=== PATIENT | male | born 1965 | race Two or more races ===

== ENCOUNTER 2022-04-16 06:26 | Emergency (ER) | payer MEDICAID ==
[~2022-04-16] VITALS: Ht 170.2 cm; Wt 88.5 kg
[2022-04-16] MEDS ORDERED: MORPHINE SULFATE 4 MG/ML SYR/VIAL IV ONE (06:45)
[2022-04-16] MEDS ORDERED: ONDANSETRON HCL 4 MG/2 ML VIAL IV ONE (06:45)
[2022-04-16] MEDS ORDERED: LIDOCAINE 1% (LOCAL ANESTH.) PF 5ml SDV ID ONE (08:45)
[2022-04-16] MEDS ORDERED: IBUP800T27 PO (09:25)
[2022-04-16 09:35] VITALS: BP 145/77
== END 2022-04-16 10:13 | disposition home or self-care (01) ==
LOC: EDBD 06:26 → ER 06:26
DX: S89.81XA Other specified injuries of right lower leg, initial encounter (principal); M25.461 Effusion, right knee; F17.210 Nicotine dependence, cigarettes, uncomplicated; Z86.73 Personal history of transient ischemic attack (TIA), and cerebral infarction without residual deficits; Z88.0 Allergy status to penicillin; W11.XXXA Fall on and from ladder, initial encounter; Y93.89 Activity, other specified; Y92.89 Other specified places as the place of occurrence of the external cause; Y99.8 Other external cause status
CPT/HCPCS: 20610; 29505; 73700; 96374; 96375; 99285; J2270; J2405

== ENCOUNTER 2023-03-13 07:59 | Inpatient (IN) | payer MEDICAID ==
[~2023-03-13] VITALS: Ht 170.2 cm; Wt 93.5 kg
[~2023-03-13 07:59] MED LIST: IBUP800T27 PO
[2023-03-13 09:17] LABS: Basophils # (auto) 0.1 10 ^3/uL (0-0.2); Basophils % (auto) 1.6 % (0.0-2.0); Eosinophils # (auto) 0.2 10 ^3/uL (0-0.8); Eosinophils % (auto) 3.3 % (0.0-7.0); Hematocrit 46.8 % (41.0-53.0); Hemoglobin 15.8 g/dL (13.5-17.5); Lymphocytes # (auto) 1.5 10 ^3/uL (0.4-5.4); Lymphocytes % (auto) 23.9 % (10.0-50.0); Mean Corpuscular Hemoglobin 31.3 pg (28.0-32.0); Mean Corpuscular Hgb Conc. 33.7 g/dL (32.0-36.0); Mean Corpuscular Volume 92.9 fL (80.0-100.0); Monocytes # (auto) 0.3 10 ^3/uL (0-1.3); Monocytes % (auto) 5.1 % (0.0-12.0); Neutrophils # (auto) 4.2 10 ^3/uL (1.6-8.6); Neutrophils % (auto) 66.1 % (37.0-80.0); Nucleated Red Blood Cells % 0.1 %; Red Blood Cells 5.04 10^6/uL (4.5-5.90); Red Cell Distribution Width 14.3 % (11.8-14.3); White Blood Cell 6.4 10^3/uL (4.4-10.8)
[2023-03-13 09:55] LABS: Albumin 3.8 g/dL (3.4-5.0); Calcium 8.9 mg/dL (8.5-10.1); Potassium 4.3 mmol/L (3.5-5.1)
[2023-03-13 10:00] LABS: BUN/Creatinine Ratio 12.9 (10.0-20.0); Bilirubin, Total 0.6 mg/dL (0.2-1.0)
[2023-03-13] MEDS ORDERED: hydrALAZINE HCL 20 MG/ML VL IV PRN (11:15)
[2023-03-13] MEDS ORDERED: LABETALOL HCL 5 MG/ML 4ML SYRINGE IV PRN (11:15)
[2023-03-13] MEDS ORDERED: amLODIPine BESYLATE 5 MG TAB PO SCH (11:15)
[2023-03-13] MEDS ORDERED: DOCUSATE SOD 100 MG CAP PO PRN (11:30)
[2023-03-13] MEDS ORDERED: ACETAMINOPHEN 325 MG TAB PO PRN (11:30)
[2023-03-13] MEDS ORDERED: ONDANSETRON HCL 4 MG/2 ML VIAL IV PRN (11:30)
[2023-03-13] MEDS: LISINOPRIL 20 MG TAB PO SCH (12:50)
[2023-03-13] MEDS: SODIUM CHLOR 0.9% PF (SALINE LOCK) 10ML VIAL/SYR IV SCH ×2 (14:01→21:55)
[2023-03-13 17:40] VITALS: BP 129/72
[2023-03-13 17:45] VITALS: BP 129/72
[2023-03-13] MEDS ORDERED: APIX5TAB PO (18:52)
[2023-03-13] MEDS ORDERED: LISI-716 PO (18:56)
[2023-03-13] MEDS: GABAPENTIN 100 MG CAP PO SCH (21:53)
[2023-03-13] MEDS: APIXABAN 5 MG TAB PO SCH (21:53)
[2023-03-13 22:00] VITALS: BP 119/72
[2023-03-14 05:00] VITALS: BP 134/77
[2023-03-14] MEDS: SODIUM CHLOR 0.9% PF (SALINE LOCK) 10ML VIAL/SYR IV SCH ×2 (05:41→16:33)
[2023-03-14 06:12] LABS: Basophils # (auto) 0.1 10 ^3/uL (0-0.2); Basophils % (auto) 0.8 % (0.0-2.0); Eosinophils # (auto) 0.2 10 ^3/uL (0-0.8); Eosinophils % (auto) 3.5 % (0.0-7.0); Hematocrit 43.8 % (41.0-53.0); Hemoglobin 14.8 g/dL (13.5-17.5); Lymphocytes # (auto) 1.7 10 ^3/uL (0.4-5.4); Lymphocytes % (auto) 25.1 % (10.0-50.0); Mean Corpuscular Hemoglobin 31.6 pg (28.0-32.0); Mean Corpuscular Hgb Conc. 33.8 g/dL (32.0-36.0); Mean Corpuscular Volume 93.5 fL (80.0-100.0); Monocytes # (auto) 0.5 10 ^3/uL (0-1.3); Monocytes % (auto) 7.9 % (0.0-12.0); Neutrophils # (auto) 4.3 10 ^3/uL (1.6-8.6); Neutrophils % (auto) 62.7 % (37.0-80.0); Red Blood Cells 4.68 10^6/uL (4.5-5.90); Red Cell Distribution Width 14.5 % (11.8-14.3); White Blood Cell 6.8 10^3/uL (4.4-10.8)
[2023-03-14 06:43] LABS: Albumin 3.2 g/dL (3.4-5.0); BUN/Creatinine Ratio 23.6 (10.0-20.0); Bilirubin, Total 0.9 mg/dL (0.2-1.0); Total Protein 6.8 g/dL (6.4-8.2)
[2023-03-14 08:30] VITALS: BP 124/78
[2023-03-14] MEDS: APIXABAN 5 MG TAB PO SCH (09:10)
[2023-03-14] MEDS: LISINOPRIL 20 MG TAB PO SCH (09:11)
[2023-03-14] MEDS: GABAPENTIN 100 MG CAP PO SCH (09:11)
[2023-03-14 09:20] VITALS: BP 124/78
[2023-03-14] MEDS ORDERED: amLODIPine BESYLATE 5 MG TAB PO SCH (10:00)
[2023-03-14] MEDS ORDERED: ENOXAPARIN SOD 40 MG/0.4 ML SYRINGE SC SCH (10:00)
[2023-03-14 12:40] VITALS: BP 163/72
[2023-03-14 16:40] VITALS: BP 106/59
[2023-03-14] MEDS ORDERED: AML5T PO (16:45)
[2023-03-14 16:59] VITALS: BP 113/67
== END 2023-03-14 17:35 | disposition home or self-care (01) | DRG 199 ==
LOC: ER 07:59 → OVERFLOW 11:18 → WEST WING 17:40
PROVIDERS: ADMIT Internal Medicine; ATTEND Internal Medicine
DX: I16.0 Hypertensive urgency (principal); E44.0 Moderate protein-calorie malnutrition; F17.210 Nicotine dependence, cigarettes, uncomplicated; I25.2 Old myocardial infarction; Z86.718 Personal history of other venous thrombosis and embolism; Z88.0 Allergy status to penicillin; Z86.73 Personal history of transient ischemic attack (TIA), and cerebral infarction without residual deficits; Z83.3 Family history of diabetes mellitus; Z82.49 Family history of ischemic heart disease and other diseases of the circulatory system; Z80.9 Family history of malignant neoplasm, unspecified; Z68.32 Body mass index [BMI] 32.0-32.9, adult
CPT/HCPCS: 36415; 71045; 80053; 84484; 85025; 85379; 93306; 93926; 93971; G0378; J3490

== ENCOUNTER 2025-04-24 21:52 | Emergency (ER) | payer MEDICAID, OTHER ==
[~2025-04-24] VITALS: Ht 170.2 cm; Wt 93.6 kg
[~2025-04-24 21:52] MED LIST changes: +AML5T PO; +APIX5TAB PO; -IBUP800T27 PO; +LISI10TA34 PO
--- NOTE | 2025-04-24 22:10 | ED.PDOC ---
SOB-HPI HPI Comments This is a 59 year old male ALEC presenting to the ED with chief complaint of SOB. Patient reports that he has been experiencing SOB with associated cough for the past 2 days along with hemoptysis over the past 4 months. Patient relays that he has a nebulizer at home for his COPD, however, he does not use it, only his inhalers which have provided no relief. EMS states that they provided a DuoNeb treatment on route to the ED with relief in wheezes heard. Patient notes he stopped smoking 2 weeks ago, but started again today. Patient denies any chest pain, fever, chills, N/V, or headache. Time Seen by MD: 22:06 Primary Care Provider: UNKNOWN Reviewed notes: Nurses Notes, Gas Station Attendant Notes, Medications, Allergies Information Source: Patient, Emergency Med Personnel Mode of Arrival: Ambulatory Severity: Moderate Timing: Hours Duration: Since onset Context: At Rest PE Risk Factors: None History of: Asthma, COPD Prehospital treatment: Breathing Tx, Oxygen Modifying Factors: Nothing Associated Signs and Symptoms: Cough, Hemoptysis If cough with SOB: Productive, Bloody Past Medical History PAST MEDICAL HISTORY: Asthma, COPD, CVA, HTN, [place] Surgical History: Hernia Repair Family History Family History: Family hx of DM, Family hx of Cancer, Family hx of HTN Social History Smoker: Cigarettes Alcohol: Occasionally Drugs: Denies Drug Use Lives In: Home Constitutional: denies: chills, diaphoresis, fatigue, fever, malaise, sweats, weakness, others EENTM: denies: blurred vision, double vision, ear bleeding, ear discharge, ear drainage, ear pain, ear ringing, eye pain, eye redness, hearing loss, mouth pain, mouth swelling, nasal discharge, nose bleeding, nose congestion, nose pain, photophobia, tearing, throat pain, throat swelling, voice changes, others Respiratory: reports: cough, hemoptysis, shortness of breath; denies: orthopnea, SOB at rest, SOB with excertion, stridor, wheezing, others Cardiovascular: denies: chest pain, dizzy spells, diaphoresis, Dyspnea on exert ion, edema, irregular heart beat, left arm pain, lightheadedness, palpitations, PND, syncope, others Gastrointestinal: denies: abdomen distended, abdominal pain, blood streaked bowels, constipated, diarrhea, dysphagia, difficulty swallowing, hematemesis, melena, nausea, poor appetite, poor fluid intake, rectal bleeding, rectal pain, vomiting, others Genitourinary: denies: burning, dysuria, flank pain, frequency, hematuria, incontinence, penile discharge, penile sore, pain, testicle pain, testicle swelling, urgency, others Neurological: denies: dizziness, fainting, headache, left sided numbness, left sided weakness, numbness, paresthesia, pre-existing deficit, right sided numbness, right sided weakness, seizure, speech problems, tingling, tremors, weakness, others Musculoskeletal: denies: back pain, gout, joint pain, joint swelling, muscle pain, muscle stiffness, neck pain, others Integumetry: denies: bruises, change in color, change in hair/nails, dryness, laceration, lesions, lumps, rash, wounds, others Allergic/Immunocompromised: denies: Difficulty Healing, Frequent Infections, Hives, Itching, others Hematologic/Lymphatic: denies: anemia, blood clots, easy bleeding, easy bruising, swollen glands, others Endocrine: denies: excessive hunger, excessive sweating, excessive thirst, excessive urination, flushing, intolerance to cold, intolerance to heat, unexplained weight gain, unexplained weight loss, others Psychiatric: denies: anxiety, bipolar disorder, depression, hopeless, panic disorder, schizophrenia, sleepless, suicidal, others All Other Systems: Reviewed and Negative Physical Exam General Appearance: No Apparent Distress, Normal HEENT: Normal ENT Inspection, Pharynx Normal, TMs Normal Neck: Full Range of Motion, Non-Tender, Normal, Normal Inspection Respiratory: Chest Non-Tender, Lungs Clear, No Accessory Muscle Use, No Respiratory Distress, Normal Breath Sounds, Other (93% on RA) Cardiovascular: No Edema, No JVD, No Murmur, No Gallop, Normal Peripheral Pulses, Regular Rate/Rhythm Breast Exam: Deferred Gastrointestinal: No Organomegaly, Non Tender, No Pulsatile Mass, Normal Bowel Sounds, Soft Genitalia: Deferred Pelvic: Deferred Rectal: Deferred Extremities: No calf tenderness, Normal capillary refill, Normal inspection, Normal range of motion, Non-tender, No pedal edema Musculoskeletal : Apperance: Normal Neurologic: Alert, sat math tutor II-XII nml as Tested, No Motor Deficits, Normal Affect, Normal Mood, No Sensory Deficits Cerebellar Function: Normal Reflexes: Normal Skin: Dry, Normal Color, Warm Lymphatic: No Adenopathy Was a procedure done? Was a procedure done?: No Differential Dx Differential Diagnosis: Asthma, Bronchitis, COPD, Pulmonary Embolism, Respiratory Distress X-Ray, Labs, Meds, VS Vital Signs Date Time Temp Pulse Resp B/P (MAP) Pulse Ox O2 Delivery O2 Flow Rate FiO2 04/25/25 00:30 98.0 75 16 120/70 (87) 96 98.0 04/24/25 22:00 98.3 80 16 141/83 (102) 94 98.3 04/24/25 21:57 80 Lab Test 04/24/25 22:13 Range/Units White Blood Count 8.0 4.4-10.8 10^3/uL Red Blood Count 4.86 4.5-5.90 10^6/uL Hemoglobin 15.9 13.5-17.5 g/dL Hematocrit 46.6 41.0-53.0 % Mean Corpuscular Volume 95.9 80.0-100.0 fL Mean Corpuscular Hemoglobin 32.7 H 28.0-32.0 pg Mean Corpuscular Hemoglobin Concent 34.1 32.0-36.0 g/dL Red Cell Distribution Width 13.7 11.8-14.3 % Platelet Count 314 140-450 10^3/uL Mean Platelet Volume 7.7 6.9-10.8 fL Neutrophils (%) (Auto) 56.8 37.0-80.0 % Lymphocytes (%) (Auto) 33.0 10.0-50.0 % Monocytes (%) (Auto) 7.4 0.0-12.0 % Eosinophils (%) (Auto) 1.6 0.0-7.0 % Basophils (%) (Auto) 1.2 0.0-2.0 % Neutrophils # (Auto) 4.5 1.6-8.6 10 ^3/uL Lymphocytes # (Auto) 2.6 0.4-5.4 10 ^3/uL Monocytes # (Auto) 0.6 0-1.3 10 ^3/uL Eosinophils # (Auto) 0.1 0-0.8 10 ^3/uL Basophils # (Auto) 0.1 0-0.2 10 ^3/uL Nucleated Red Blood Cells 0.1 % Sodium Level 139 136-145 mmol/L Potassium Level 4.2 3.5-5.1 mmol/L Chloride Level 104 98-107 mmol/L Carbon Dioxide Level 23 20-31 mmol/L Anion Gap 12 5-15 Blood Urea Nitrogen 11 9-23 mg/dL Creatinine 1.05 0.700-1.30 mg/dL Glomerular Filtration Rate Calc 81 >90 mL/min BUN/Creatinine Ratio 10.5 10.0-20.0 Serum Glucose 93 74-106 mg/dL Calcium Level 9.0 8.7-10.4 mg/dL Time of 1ST Reevaluation: 23:06 Reevaluation 1ST: Unchanged Patient Education/Counseling: Diagnosis, Treatment Family Education/Counseling: No Family Present SEPSIS Sepsis Screen Physician Orders Chest Xray 1 View (04/24/25 22:04) Electrocardigram (04/24/25 23:45) Vital Signs Date Time Temp Pulse Resp B/P (MAP) Pulse Ox O2 Delivery O2 Flow Rate FiO2 04/25/25 00:30 98.0 75 16 120/70 (87) 96 98.0 04/24/25 22:00 98.3 80 16 141/83 (102) 94 98.3 04/24/25 21:57 80 Laboratory Tests Test 04/24/25 22:13 White Blood Count 8.0 10^3/uL (4.4-10.8) Departure 1 Departure Time of Disposition: 01:17 Impression: Primary Impression: COPD exacerbation Disposition: 01 HOME / SELF CARE / HOMELESS Condition: Fair e-Prescriptions [id number] (Trelegy Ellipta 100-62.5-25 Mcg/INH) 1 Aer Aer 1 AER IN DAILY for 30 Days, #1 AER Prov: DESIREE MARTIN 04/25/25 Prednisone (Prednisone) 20 Mg Tab 40 MG PO DAILY for 5 Days, #10 MG Prov: DESIREE MARTIN 04/25/25 Discharged With: Self Critical Care Note Critical Care Time?: No Stability Stability form required: No Heart Score Heart Score: Heart Score Response (Comments) Value History N/A 0 EKG N/A 0 Age N/A 0 Risk Factors N/A 0 Troponin N/A 0 Total 0 I personally scribed for DESIREE MARTIN ([email or web address]) on 04/24/25 at 22:10. Electronically submitted by Moris Rosenbaum ([email or web address]). DESIREE MARTIN [facility] Apr 24, 2025 22:10
[2025-04-24 23:11] LABS: Basophils # (auto) 0.1 10 ^3/uL (0-0.2); Basophils % (auto) 1.2 % (0.0-2.0); Eosinophils # (auto) 0.1 10 ^3/uL (0-0.8); Eosinophils % (auto) 1.6 % (0.0-7.0); Hematocrit 46.6 % (41.0-53.0); Hemoglobin 15.9 g/dL (13.5-17.5); Lymphocytes # (auto) 2.6 10 ^3/uL (0.4-5.4); Mean Corpuscular Hemoglobin 32.7 pg (28.0-32.0); Mean Corpuscular Hgb Conc. 34.1 g/dL (32.0-36.0); Mean Corpuscular Volume 95.9 fL (80.0-100.0); Monocytes # (auto) 0.6 10 ^3/uL (0-1.3); Monocytes % (auto) 7.4 % (0.0-12.0); Neutrophils # (auto) 4.5 10 ^3/uL (1.6-8.6); Neutrophils % (auto) 56.8 % (37.0-80.0); Nucleated Red Blood Cells % 0.1 %; Platelet Count (auto) 314 10^3/uL (140-450); Red Blood Cells 4.86 10^6/uL (4.5-5.90); Red Cell Distribution Width 13.7 % (11.8-14.3)
[2025-04-24 23:17] LABS: Chloride 104 mmol/L (98-107); Potassium 4.2 mmol/L (3.5-5.1); Sodium 139 mmol/L (136-145)
[2025-04-24 23:18] LABS: Anion Gap 12 (5-15); Carbon Dioxide 23 mmol/L (20-31)
[2025-04-24 23:23] LABS: BUN/Creatinine Ratio 10.5 (10.0-20.0); Blood Urea Nitrogen 11 mg/dL (9-23); Glucose 93 mg/dL (74-106)
--- NOTE | 2025-04-25 00:56 | DVH ---
CHEST RADIOGRAPH Indication: sob Technique: Single frontal view of the chest was obtained COMPARISON: XY CHEST PORTABLE on DOS: 03/13/23 FINDINGS: Lines and Tubes: None Lungs: Clear Pleura: No effusion. No pneumothorax. Cardiomediastinal contours: Unremarkable Bones: Unremarkable IMPRESSION: 1. No acute disease.
[2025-04-25] MEDS ORDERED: PRED20TA2 PO (01:19)
[2025-04-25] MEDS ORDERED: FLUT1AER3 IN (01:19)
[2025-04-25 03:02] VITALS: BP 113/65; TEMP 97.9
[2025-04-25 03:03] VITALS: PULSE 73; RESP 19; O2SAT 97
--- NOTE | 2025-04-25 10:45 | ECG ---
[facility] Test Date: 2025-04-24 Test Time: 21:57:09 Pat Name: ADRIANA HUYNH Department: ED Room: Gender: M Commercial Producer: : [id number] Requested By: DESIREE MARTIN Order Number: [id number] Reading MD: Samm Cartagena Measurements Intervals [place] Rate: 80 P: 48 WV: 166 QRS: 77 QRSD: 104 T: 43 QT: 358 QTc: 413 Interpretive Statements Sinus rhythm Abnormal inferior Q waves Electronically Signed On 04-27-2025 20:03:36 PDT by Samm Cartagena Please click the below link to view image of tracing.
== END 2025-04-25 03:12 | disposition home or self-care (01) ==
LOC: EDBD 21:52 → ER 22:00
DX: J44.1 Chronic obstructive pulmonary disease with (acute) exacerbation (principal); I10 Essential (primary) hypertension; F17.210 Nicotine dependence, cigarettes, uncomplicated; F10.90 Alcohol use, unspecified, uncomplicated; J45.909 Unspecified asthma, uncomplicated; Z86.73 Personal history of transient ischemic attack (TIA), and cerebral infarction without residual deficits; Z98.890 Other specified postprocedural states; Y90.9 Presence of alcohol in blood, level not specified
CPT/HCPCS: 36415; 71045; 80048; 85025; 93005

== ENCOUNTER 2025-04-28 16:13 | Emergency (ER) | payer OTHER ==
[~2025-04-28] VITALS: Ht 170.2 cm; Wt 90.9 kg
[~2025-04-28 16:13] MED LIST changes: +FLUT1AER3 IN; +PRED20TA2 PO
--- NOTE | 2025-04-28 16:23 | ED.PDOC ---
SOB-HPI HPI Comments 59-year-old male presents with a chief complaint of SOB. Patient was recently seen here and treated for COPD exacerbation, prescribed steroids, which patient has yet to brain picker. Patient states that his nebulizer at home is broken and cannot use that either. Patient is able to speak in full, complete sentences. Patient is noncompliant with treatment and still smokes. Chief Complaint: Shortness of Breath Time Seen by MD: 16:20 Primary Care Provider: UNKNOWN Reviewed notes: Medications, Allergies Information Source: Patient Mode of Arrival: EMS Severity: Moderate Timing: Days Duration: Since onset Context: At Rest PE Risk Factors: None History of: Asthma, COPD Prehospital treatment: Breathing Tx, [employer] Past Medical History PAST MEDICAL HISTORY: Asthma, COPD, CVA, HTN, [place] Surgical History: Hernia Repair Family History Family History: Family hx of DM, Family hx of Cancer, Family hx of HTN Social History Smoker: Cigarettes Alcohol: Occasionally Drugs: Denies Drug Use Lives In: Home Constitutional: denies: chills, diaphoresis, fatigue, fever, malaise, sweats, weakness, others EENTM: denies: blurred vision, double vision, ear bleeding, ear discharge, ear drainage, ear pain, ear ringing, eye pain, eye redness, hearing loss, mouth pain, mouth swelling, nasal discharge, nose bleeding, nose congestion, nose pain, photophobia, tearing, throat pain, throat swelling, voice changes, others Respiratory: reports: shortness of breath; denies: cough, hemoptysis, orthopnea, SOB at rest, SOB with excertion, stridor, wheezing, others Cardiovascular: denies: chest pain, dizzy spells, diaphoresis, Dyspnea on exertion, edema, irregular heart beat, left arm pain, lightheadedness, palpitations, PND, syncope, others Gastrointestinal: denies: abdomen distended, abdominal pain, blood streaked bowels, constipated, diarrhea, dysphagia, difficulty swallowing, hematemesis, melena, nausea, poor appetite, poor fluid intake, rectal bleeding, rectal pain, vomiting, others Genitourinary: denies: burning, dysuria, flank pain, frequency, hematuria, incontinence, penile discharge, penile sore, pain, testicle pain, testicle sw elling, urgency, others Neurological: denies: dizziness, fainting, headache, left sided numbness, left sided weakness, numbness, paresthesia, pre-existing deficit, right sided numbness, right sided weakness, seizure, speech problems, tingling, tremors, weakness, others Musculoskeletal: denies: back pain, gout, joint pain, joint swelling, muscle pain, muscle stiffness, neck pain, others Integumetry: denies: bruises, change in color, change in hair/nails, dryness, laceration, lesions, lumps, rash, wounds, others Allergic/Immunocompromised: denies: Difficulty Healing, Frequent Infections, Hives, Itching, others Hematologic/Lymphatic: denies: anemia, blood clots, easy bleeding, easy bruising, swollen glands, others Endocrine: denies: excessive hunger, excessive sweating, excessive thirst, excessive urination, flushing, intolerance to cold, intolerance to heat, unexplained weight gain, unexplained weight loss, others Psychiatric: denies: anxiety, bipolar disorder, depression, hopeless, panic disorder, schizophrenia, sleepless, suicidal, others All Other Systems: Reviewed and Negative Physical Exam General Appearance: No Apparent Distress, Normal HEENT: Normal ENT Inspection, Pharynx Normal, TMs Normal Neck: Full Range of Motion, Non-Tender, Normal, Normal Inspection Respiratory: Chest Non-Tender, Lungs Clear, No Accessory Muscle Use, No Respiratory Distress, Normal Breath Sounds Cardiovascular: No Edema, No JVD, No Murmur, No Gallop, Normal Peripheral Pulses, Regular Rate/Rhythm Breast Exam: Deferred Gastrointestinal: No Organomegaly, Non Tender, No Pulsatile Mass, Normal Bowel Sounds, Soft Genitalia: Deferred Pelvic: Deferred Rectal: Deferred Extremities: No calf tenderness, Normal capillary refill, Normal inspection, No rmal range of motion, Non-tender, No pedal edema Musculoskeletal : Apperance: Normal Neurologic: Alert, child protective investigator II-XII nml as Tested, No Motor Deficits, Normal Affect, Normal Mood, No Sensory Deficits Cerebellar Function: Normal Reflexes: Normal Skin: Dry, Normal Color, Warm Lymphatic: No Adenopathy Was a procedure done? Was a procedure done?: No Differential Dx Differential Diagnosis: Anxiety, Asthma, Bronchitis, CHF, COPD, Hypervent ilation, Panic Attack, Pneumonia, Pneumothorax, Pulmonary Embolism, Respiratory Distress, URI, Other (tobacco abuse, nocompliance with treatment) X-Ray, Labs, Meds, VS Vital Signs Date Time Temp Pulse Resp B/P (MAP) Pulse Ox O2 Delivery O2 Flow Rate FiO2 04/28/25 16:47 98 Room Air* 0 21 04/28/25 16:31 98.0 86 20 128/84 (99) 98 98.0 04/28/25 16:31 86 20 98 Room Air 04/28/25 16:23 87 04/28/25 16:18 97.5 99 20 130/99 (109) 99 97.5 Current Medications Medications (Trade) Dose Ordered Sig/Bud Route Start Time Stop Time Status Last Admin Albuterol (Ventolin Medneb) 5 mg ONCE ONCE NEB 04/28/25 16:30 04/28/25 16:31 DC 04/28/25 16:49 Ipratropium [place] (Atrovent Medneb) 0.5 mg ONCE ONCE NEB 04/28/25 16:30 04/28/25 16:31 DC 04/28/25 16:49 Dexamethasone Sodium Phosphate (Decadron Injection) 4 mg ONCE ONCE PO 04/28/25 16:30 04/28/25 16:31 DC 04/28/25 16:28 Time of 1ST Reevaluation: 16:50 Reevaluation 1ST: Unchanged Time of 2ND Reevaluation: 17:42 Reevaluation 2ND: Improved Patient Education/Counseling: Diagnosis, Treatment, Prognosis, Need For Follow Up Family Education/Counseling: No Family Present Comments i strongly advised pt to comply with treatments and stop smoking. he has not started his prednisone frm his last visit and has not gotten his med neb machine replace. he still smokes. clinically he is not in distress. vss are normal. l ungs are clear. he is stable for discharge. i will refill his inhaler and he marita start his steroid that is already delivered to his home SEPSIS Sepsis Screen Physician Orders Chest Portable (04/28/25 16:20) Vital Signs Date Time Temp Pulse Resp B/P (MAP) Pulse Ox O2 Delivery O2 Flow Rate FiO2 04/28/25 16:47 98 Room Air* 0 21 04/28/25 16:31 98.0 86 20 128/84 (99) 98 98.0 04/28/25 16:31 86 20 98 Room Air 04/28/25 16:23 87 04/28/25 16:18 97.5 99 20 130/99 (109) 99 97.5 Medications Medications Dose Ordered Sig/Bud Route Start Time Stop Time Status Last Admin Dose Admin Albuterol 5 mg ONCE ONCE NEB 04/28/25 16:30 04/28/25 16:31 DC 04/28/25 16:49 Dexamethasone Sodium Phosphate 4 mg ONCE ONCE PO 04/28/25 16:30 04/28/25 16:31 DC 04/28/25 16:28 Ipratropium [place] 0.5 mg ONCE ONCE NEB 04/28/25 16:30 04/28/25 16:31 DC 04/28/25 16:49 Departure 1 Departure Time of Disposition: 17:44 Impression: Primary Impression: Asthma Qualified Codes: J45.20 - Mild intermittent asthma, uncomplicated Additional Impressions: Tobacco abuse Noncompliance Disposition: 01 HOME / SELF CARE / HOMELESS Condition: Good Additional Instructions: stop smoking. start your steroid as prescribed. fill your inhaler and use it as prescribed e-Prescriptions Ipratropium-Albuterol (COMBIVENT RESPIMAT) Respimat Aer 2 PUFF IN Q4HP PRN for 1 Day, #1 AER Prov: MARLENY HEBERT MD 04/28/25 Discharged With: Self Critical Care Note Critical Care Time?: No Stability Stability form required: No Heart Score Heart Score: Heart Score Response (Comments) Value History N/A 0 EKG N/A 0 Age N/A 0 Risk Factors N/A 0 Troponin N/A 0 Total 0 I personally scribed for MARLENY HEBERT MD ([email or web address]) on 04/28/25 at 16:23. Electronically submitted by Kane Mojica ([email or web address]). MARLENY HEBERT MD Apr 28, 2025 16:23
[2025-04-28] MEDS: DexAMETHasone SOD PHOS 4 MG/1ML SDV INJ PO ONE (16:28)
--- NOTE | 2025-04-28 16:31 | ECG ---
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
[2025-04-28] MEDS: ALBUTEROL SULF 2.5 MG/0.5ML(0.5%) NEB SOLN NEB ONE (16:49)
[2025-04-28] MEDS: IPRATROPIUM BROM 0.5 MG/2.5ML INH SOL NEB ONE (16:49)
--- NOTE | 2025-04-28 17:31 | DVH ---
CHEST RADIOGRAPH Indication: sob Technique: Single frontal view of the chest was obtained Comparison: XY CHEST XRAY 1 VIEW on DOS: 04/25/25, XY CHEST PORTABLE on DOS: 03/13/23 FINDINGS: Lines and Tubes: None Lungs: No focal consolidation. Pleura: No effusion. No pneumothorax. Cardiomediastinal contours: Unremarkable Bones: No acute osseous abnormality. IMPRESSION: 1. No acute cardiopulmonary disease.
[2025-04-28] MEDS ORDERED: IPRAAER6 IN (17:47)
[2025-04-28 18:11] VITALS: BP 156/84; PULSE 80; RESP 16; TEMP 97.9; O2SAT 97
== END 2025-04-28 18:16 | disposition home or self-care (01) ==
LOC: EDBD 16:13 → EDUNIT# 16:13 → ER 16:13
DX: J45.909 Unspecified asthma, uncomplicated (principal); F17.210 Nicotine dependence, cigarettes, uncomplicated; I10 Essential (primary) hypertension; Z86.73 Personal history of transient ischemic attack (TIA), and cerebral infarction without residual deficits; Z91.199 Patient's noncompliance with other medical treatment and regimen due to unspecified reason; Z98.890 Other specified postprocedural states
CPT/HCPCS: 71045; 93005; 94640; J1100